=== PATIENT | male | born 1955 | race African-American/Black ===

== ENCOUNTER 2018-09-01 18:01 | Emergency (ER) | payer MEDICARE, OTHER ==
[~2018-09-01] VITALS: Ht 182.9 cm; Wt 74.0 kg
[2018-09-01] MEDS ORDERED: HYDROCODONE/ACETAMINOPHEN 5/325MG TABLET PO ONE (19:30)
[2018-09-01] MEDS ORDERED: KETOROLAC 60MG/2ML VIAL IM ONE (20:45)
[2018-09-01 22:00] VITALS: BP 158/97
== END 2018-09-01 22:12 | disposition home or self-care (01) ==
LOC: ER 18:01
DX: S30.0XXA Contusion of lower back and pelvis, initial encounter (principal); E11.9 Type 2 diabetes mellitus without complications; I10 Essential (primary) hypertension; W18.39XA Other fall on same level, initial encounter; Y93.89 Activity, other specified; Y92.89 Other specified places as the place of occurrence of the external cause; Y99.8 Other external cause status; Z98.890 Other specified postprocedural states
CPT/HCPCS: 72131; 96372; 99284; J1885